=== PATIENT | male | born 1965 | race Caucasian/White ===

== ENCOUNTER → 2024-05-02 10:05 | Outpatient (REF) | payer BC, SELFPAY | LOC: HWRAD 10:05 | PROVIDERS: ATTENDING PHYSICIAN Family Medicine | DX: M54.6 Pain in thoracic spine (principal) | CPT/HCPCS: 71046 ==

== ENCOUNTER 2024-09-20 04:57 | Emergency (ER) | payer BC, SELFPAY ==
[2024-09-20] VITALS (7 sets, daily range): BP systolic 135–161; BP diastolic 69–85; BMI 34.9
--- NOTE | 2024-09-20 05:50 | ED.GENMED ---
History of Present Illness
<DO Lacy Leos Last Filed: 09/20/24 06:22>
General
Chief Complaint: Back Pain
Source: patient and ambulance crew
Exam Limitations: none
Time Seen by Provider: 09/20/24 05:40
Nursing documentation reviewed up to this point in time: agreed with
History of Present Illness
History of Present Illness:
59-year-old male presents to the emergency department with several days of intermittent low back pain on the right. Tonight the pain was much more severe. He reports that the pain radiated around to the right flank. Denies nausea or vomiting. He
has had a history of 2 laser fusions of his lumbar spine in the past. He states that this pain is different. Denies any urinary symptoms. Denies fever, chills, chest pain, or shortness of breath.
Review of Systems
<DO Lacy eLos Last Filed: 09/20/24 06:22>
Review of Systems
Allergies reviewed?: Yes
All Other Systems: ROS reviewed and negative except as documented in HPI and ROS
Constitutional: Reports no symptoms
EENT: Reports no symptoms
Respiratory: Reports no symptoms
Cardiac: Reports no symptoms
ABD/GI: Reports no symptoms
: Reports no symptoms
Musculoskeletal: Reports muscle pain and back pain
Skin: Reports no symptoms
Neurological: Reports no symptoms
Endocrine: Reports no symptoms
Hematologic/Lymphatic: Reports no symptoms
Psychiatric: Reports anxiety
Phy Exam
<DO Lacy Leos Last Filed: 09/20/24 06:22>
General Physical Exam
General Presentation: well appearing and mild distress
General age: appears stated age
General Skin: warm
General Habitus: normal
General Mental: alert and anxious
General Hydration: appears well hydrated
ENT Exam
ENT Exam: EOMI, pharynx normal, neck supple and normocephalic
Eye Exam
Eye Exam: PERRL, cornea clear and conjunctiva normal
Cardiovascular Exam
Cardiovascular Exam: regular rate/rhythm, no edema, no murmur and normal peripheral pulses
Pulmonary Exam
Pulmonary Exam: lungs clear, no respiratory distress, no rales, no crackles, no rhonchi, no stridor and no wheezing
Gastrointestinal Exam
Gastrointestinal Exam: normal bowel sounds, non tender, soft, no organomegaly, no pulsatile mass and non distended
Neurological Exam
Neurological Exam: alert, oriented x3 and speech normal
Musculoskeletal Exam
Musculoskeletal Exam: full ROM and no edema
Skin Exam
Skin Exam: normal color, warm/dry, no rash and no petechia
Psychiatric Exam
Psychiatric Exam: normal mood/affect
Course
<Alexi Glaser, DO - Last Filed: 09/20/24 06:22>
Orders/Labs/Results
Orders:
Orders
09/20/24 05:45
CMP [Comprehensive Metabolic Panel] Urgent
Complete Blood Count/With Diff Urgent
09/20/24 05:46
CT Abd/pel Without Iv Or Oral Urgent
Comment:
Reason For Exam: right lbp radiates to front
09/20/24 05:48
Ketorolac [Toradol] 15 mg .ROUTE .STK-MED ONE
09/20/24 05:52
Ketorolac [Toradol] 15 mg IV NOW STA
09/20/24 06:33
Oxycodone [Roxicodone] 5 mg PO NOW STA
09/20/24 08:19
Urinalysis Reflex To Culture Urgent
Date Specimen was Collected: 09/20/24
Time Specimen was Collected: 05:36
Urine Microscopic Reflex Cult Urgent
09/20/24 08:32
Acetaminophen [Tylenol] 1,000 mg PO NOW STA
Dexamethasone [Decadron] 10 mg PO NOW STA
09/20/24 09:13
Oxycodone [Roxicodone] 5 mg PO NOW STA
Abnormal Lab Results
09/20/24 09/20/24
05:45 08:19
WBC 3.3 L 10^3/uL
(4.8-10.8)
RBC 4.37 L 10^6/uL
(4.70-6.10)
MCH 33.9 H pg
(27.0-31.0)
Plt Count 52 L 10^3/uL
(130-400)
MPV 11.9 H fL
(7.4-10.4)
Absolute Lymphs (auto) 0.8 L 10^3/uL
(1.2-3.4)
Monocytes % 9.6 H %
(1.7-9.3)
Chloride 108 H mmol/L
(98-107)
Glucose 127 H mg/dl
(70-99)
AST 66 H U/L
(17-59)
ALT 72 H U/L
(0-50)
Urine Ketones 1+ A
(Negative)
Urine Urobilinogen 3+ A
(Neg - 1+)
Urine Bacteria (Reflex) Few A
(Negative)
Urine Albumin (Reflex) 1+ A
(Neg - Trace)
09/20/24 05:45
09/20/24 05:45
Vital Signs
Initial and Last Documented VS:
Initial Vital Signs
BP
161/75
09/20/24 05:00
Last Documented Vital Signs
Temp Pulse Resp BP Pulse Ox
36.7 C 71 16 146/83 99
09/20/24 05:06 09/20/24 08:39 09/20/24 05:06 09/20/24 08:39 09/20/24 08:39
<Lion Duarte MD - Last Filed: 09/20/24 09:29>
Orders/Labs/Results
Orders:
Orders
09/20/24 05:45
CMP [Comprehensive Metabolic Panel] Urgent
Complete Blood Count/With Diff Urgent
09/20/24 05:46
CT Abd/pel Without Iv Or Oral Urgent
Comment:
Reason For Exam: right lbp radiates to front
09/20/24 05:48
Ketorolac [Toradol] 15 mg .ROUTE .STK-MED ONE
09/20/24 05:52
Ketorolac [Toradol] 15 mg IV NOW STA
09/20/24 06:33
Oxycodone [Roxicodone] 5 mg PO NOW STA
09/20/24 08:19
Urinalysis Reflex To Culture Urgent
Date Specimen was Collected: 09/20/24
Time Specimen was Collected: 05:36
Urine Microscopic Reflex Cult Urgent
09/20/24 08:32
Acetaminophen [Tylenol] 1,000 mg PO NOW STA
Dexamethasone [Decadron] 10 mg PO NOW STA
09/20/24 09:13
Oxycodone [Roxicodone] 5 mg PO NOW STA
Abnormal Lab Results
09/20/24 09/20/24
05:45 08:19
WBC 3.3 L 10^3/uL
(4.8-10.8)
RBC 4.37 L 10^6/uL
(4.70-6.10)
MCH 33.9 H pg
(27.0-31.0)
Plt Count 52 L 10^3/uL
(130-400)
MPV 11.9 H fL
(7.4-10.4)
Absolute Lymphs (auto) 0.8 L 10^3/uL
(1.2-3.4)
Monocytes % 9.6 H %
(1.7-9.3)
Chloride 108 H mmol/L
(98-107)
Glucose 127 H mg/dl
(70-99)
AST 66 H U/L
(17-59)
ALT 72 H U/L
(0-50)
Urine Ketones 1+ A
(Negative)
Urine Urobilinogen 3+ A
(Neg - 1+)
Urine Bacteria (Reflex) Few A
(Negative)
Urine Albumin (Reflex) 1+ A
(Neg - Trace)
09/20/24 05:45
09/20/24 05:45
Vital Signs
Initial and Last Documented VS:
Initial Vital Signs
BP
161/75
09/20/24 05:00
Last Documented Vital Signs
Temp Pulse Resp BP Pulse Ox
36.7 C 71 16 146/83 99
09/20/24 05:06 09/20/24 08:39 09/20/24 05:06 09/20/24 08:39 09/20/24 08:39
<Alexi Glaser DO - Last Filed: 09/20/24 06:22>
MDM/Problems Addressed
Differential Diagnosis Includes:
Kidney stone, musculoskeletal flank pain, UTI, pyelonephritis
MDM/Problems Addressed:
59-year-old male presents to the emergency department via ambulance with low back pain radiating to his right flank. No nausea or vomiting.
<Alexi Glaser DO - Last Filed: 09/20/24 06:22>
*Pulse Oximetry
Patient hypoxic: no
*Critical Care Note
Total Time (30-74mins, 75-104mins- exclusive of procedures): Not Applicable
<Lion Duarte MD - Last Filed: 09/20/24 09:29>
Update Note
Update Note:
UPDATE (Lion Duarte MD)
I have seen and evaluated the patient after signout and reviewed all labs and imaging.
Focused HPI: 59-year-old male with past medical history of chronic low back pain who presents to the ER for evaluation of right flank pain. Patient reports onset of symptoms yesterday evening around 10 PM and reports waxing waning intensity since
that time. Took Tylenol and Celebrex at home without improvement and came to the ER. He reports pain in right flank radiates towards the right hip. No clear triggering or relieving factors noted. He denies any associated nausea, vomiting.
Denies any fevers or chills. Denies any dysuria, hematuria, change in urinary frequency. He denies any weakness or numbness in the legs. Denies any bowel or bladder incontinence. He says that he has had chronic back pain but location of pain is
atypical for him. He denies any injury.
Physical exam: Laying on his side not in acute distress. Hypertensive otherwise normal vitals. He has no midline tenderness of the thoracic or lumbar spine and no reproducible tenderness in the paraspinal regions. He has no CVA tenderness. His
abdomen is soft and nontender to deep palpation. He has no rash in the area of concern. He has good strength in his legs bilaterally.
Medical Decision Makin-year-old male presents with right flank pain as described above. Vitals and exam as above. He had a CT scan of the abdomen pelvis which is pending. He had labs sent off including a CBC and a CMP which are pending. He
had a urinalysis ordered which is pending. He had a dose of Toradol with only mild improvement requesting additional pain medication which we will provide. Will reassess after the above.
Labs reviewed: CBC shows marginal leukopenia but marked thrombocytopenia with platelet count of 52,000. CMP shows mildly elevated transaminases. CT of the abdomen pelvis shows moderate hepatic cirrhosis with severe hepatic steatosis and there is
also a 2.2 cm lesion in the right lobe of the liver which could be sclerotic or dysplastic nodule or hepatocellular carcinoma. Certainly possible his right flank pain is related to these findings on CT although with benign abdominal exam I would
still lean somewhat more towards back spasm/muscular pain or radiculopathy. Patient still having significant pain despite Toradol, oxycodone. Can add Decadron and Tylenol.
I had a long discussion with the patient about findings on labs and imaging. He admits that he has been drinking rather heavily for about 3 years. He says that he had no known history of cirrhosis. He says that he drinks a half a box of wine a
day usually. I explained to him the gravity of the findings on CT and labs and explained that he needs to stop drinking immediately to prevent further issues with his liver. I spoke to him about need for detox for alcohol cessation resources but
he declined�he says he has not had issues with withdrawal when he stops drinking and would rather pursue alcohol cessation on his own terms; he assured me that he plans to stop drinking. I offered him admission for further assessment of his CT
findings and symptom control of his flank pain but he declined. He would prefer to pursue outpatient workup and he feels his symptoms have improved enough for discharge. I did call office for his primary care physician at [facility].
I spoke with the physicians assistant terminal manager there to explain the findings today in the emergency room and the need for urgent follow-up. They indicated that they will call him to follow-up early next week to initiate outpatient evaluation and treatment.
ED Attending Note
<Alexi Glaser, DO - Last Filed: 09/20/24 06:22>
-
Portions of this chart may have been created with voice recognition software.� Occasional wrong word or��sound alike� substitutions may have occurred due to the inherent limitations of voice recognition software.
Discharge Plan
Departure
Patient Disposition: Home (Routine Discharge)
Date of Disposition: 09/20/24
Time of Disposition: 09:29
Patient with high blood pressure during this ER visit?: Yes
Discharge Problem:
Cirrhosis, Nodule on liver, Thrombocytopenia, Right flank pain
Instructions: Cirrhosis, Radiculopathy (DC), Diet for adults with cirrhosis
Prescriptions:
New
oxycodone 5 mg tablet
5 mg PO TID PRN (Reason: Pain) Qty: 14 0RF
methylprednisolone [Medrol (Rajiv)] 4 mg tablets,dose pack
See Rx Instructions .ROUTE .COMPLEX Qty: 21 0RF
Rx Instructions:
for 6 days
No Action
celecoxib [Celebrex] 100 mg Capsule
100 mg PO DAILY
escitalopram oxalate 10 mg Tablet
10 mg PO DAILY
tadalafil 2.5 mg Tablet
2.5 mg PO DAILY PRN (Reason: ED)
amphetamine
PO DAILY
Referrals:
Yanna Rivero PA [Family Provider] - Follow up in 2-3 days
Activity Restrictions/Additional Instructions:
YOU WERE FOUND TO HAVE SIGNS OF CIRRHOSIS OF THE LIVER. YOU MUST STOP DRINKING IMMEDIATELY TO PREVENT FURTHER DAMAGE TO YOUR LIVER. IF YOU NEED HELP WITH ALCOHOL CESSATION, YOU CAN ALWAYS COME TO THE ED AND WE WILL HELP. YOU WERE FOUND TO HAVE
NODULE IN YOUR LIVER WHICH MUST BE FURTHER EVALUATED TO ENSURE THAT THIS IS NOT CANCER. YOU ALSO HAD ABNORMAL LAB WORK (LIVER FUNCTION, PLATELETS, WBC) WHICH NEEDS TO BE FOLLOWED UP ON BY YOUR PRIMARY DOCTOR. YOU SHOULD SEE YOUR DOCTOR SOON
POSSIBLE TO ADDRESS ALL OF THESE ISSUES!
Thank you for visiting the Emergency Department at [facility].
1. Please schedule a follow up appointment as directed. Call first thing tomorrow morning to make an appointment.
2. If indicated, please take your medications as instructed and indicated on discharge paperwork.
3. If any of your symptoms do not improve, or persist, or become more severe within 6-12 hours, please return to the emergency department for further care.
4. Please return to the emergency department if you develop a headache, neck pain/stiffness, fever greater than 100.4F, chest pain, shortness of breath, persistent nausea, vomiting, slurred speech, difficulty walking, numbness/tingling, weakness,
signs of infection or any other symptoms that are worrisome to you.
Please call [phone] if you have any questions.
Interventions
Interventions:
*Risk Screen - Suicide Last Done: 09/20/24 05:06
*General Assessment Last Done: 09/20/24 05:06
*Neglect/Abuse Screening Last Done: 09/20/24 05:06
*ED- Fall Risk Assessment Last Done: 09/20/24 05:06
*ED COVID-19 Vaccine History Last Done: 09/20/24 05:06
ED-Musculoskeletal Assessment Last Done: 09/20/24 05:23
Discharge Date and Time
Print Language: WALLISIAN
[2024-09-20] MEDS: TORADOL 15 MG IV (05:53)
[2024-09-20 06:28] LABS: ALT (SGPT) 72 U/L (0-50); AST (SGOT) 66 U/L (17-59); Albumin 4.3 g/dl (3.5-5.0); Alkaline Phosphatase 109 U/L (38-126); Blood Urea Nitrogen 20 mg/dl (9-20); Calcium 9.5 mg/dl (8.4-10.2); Carbon Dioxide 27 mmol/L (22-30); Chloride 108 mmol/L (98-107); Estimated Creatinine Clearance 123 ml/min; Glucose 127 mg/dl (70-99); Potassium 4.2 mmol/L (3.5-5.1); Sodium 144 mmol/L (135-145); Total Protein 7.1 g/dl (6.3-8.2); eGFR > 60.00
[2024-09-20 06:47] LABS: % Basophils 0.6 % (0-2); % Eosinophils 1.2 % (0-6); % Immature Granulocytes 0.3 % (0-0.5); % Lymphocytes 25.3 % (20.5-51.1); % Monocytes 9.6 % (1.7-9.3); Absolute Lymphocytes 0.8 10^3/uL (1.2-3.4); Absolute Monocytes 0.3 10^3/uL (0.1-0.6); Absolute Neutrophils 2.1 10^3/uL (1.4-6.5); Hemoglobin 14.8 g/dL (13.0-18.0); Mean Corp Hgb Conc. 36.1 g/dL (33.0-37.0); Mean Corpuscular Hgb 33.9 pg (27.0-31.0); Mean Corpuscular Volume 93.8 fL (80.0-94.0); Mean Platelet Volume 11.9 fL (7.4-10.4); Nucleated Red Blood Cells % 0 % (-); Platelet Count 52 10^3/uL (130-400); Red Blood Cell Count 4.37 10^6/uL (4.70-6.10); Red Cell Dist. Width 12.6 % (11.5-14.5); White Blood Cell Count 3.3 10^3/uL (4.8-10.8)
[2024-09-20] MEDS: ROXICODONE 5 MG PO ×2 (07:00→09:21)
[2024-09-20] MEDS: DECADRON 10 MG PO (08:36)
[2024-09-20] MEDS: TYLENOL 1000 MG PO (08:36)
[2024-09-20 09:04] LABS: Urine Albumin 1+ (Neg - Trace); Urine Bilirubin Negative (Negative); Urine Character Clear (Clear); Urine Color Yellow; Urine Glucose Negative (Negative); Urine Ketone 1+ (Negative); Urine Leukocyte Negative (Negative); Urine Nitrite Negative (Negative); Urine Occult Blood Negative (Negative); Urine Urobilinogen 3+ (Neg - 1+)
[2024-09-20 09:18] LABS: Urine Bacteria Few (Negative); Urine Red Blood Cell 0-2 /HPF (0-2); Urine White Cell 0-2 /HPF (0-5)
== END 2024-09-20 10:30 | disposition home or self-care (01) ==
LOC: EMR 04:57
PROVIDERS: EMERGENCY PHYSICIAN Student in an Organized Health Care Education/Training Program; FAMILY PHYSICIAN Physician Assistant Medical
DX: K74.60 Unspecified cirrhosis of liver (principal); D69.6 Thrombocytopenia, unspecified; K76.89 Other specified diseases of liver; R10.9 Unspecified abdominal pain
CPT/HCPCS: 99285; 96374; 74176; 80053; 81003; 81015; 85025

== ENCOUNTER 2024-12-02 06:21 | Day surgery (SDC) | payer BC, SELFPAY | END 2024-12-02 11:29 | disposition home or self-care (01) | LOC: GI 06:21 | PROVIDERS: ATTENDING PHYSICIAN Student in an Organized Health Care Education/Training Program | DX: R12 Heartburn (principal); K22.2 Esophageal obstruction; K22.89 Other specified disease of esophagus; K44.9 Diaphragmatic hernia without obstruction or gangrene; K74.60 Unspecified cirrhosis of liver; K76.6 Portal hypertension; K31.89 Other diseases of stomach and duodenum; K29.70 Gastritis, unspecified, without bleeding; K29.50 Unspecified chronic gastritis without bleeding | CPT/HCPCS: 43239; 88305; 88342 ==